=== PATIENT | female | born 1975 | race Caucasian/White ===

== ENCOUNTER 2020-05-18 12:56 | Outpatient (NON) | payer BC, SELFPAY ==
[2020-05-18 21:13] LABS: SARS-CoV-2 RNA PCR Negative
== END 2020-05-18 12:57 ==
PROVIDERS: PCP Family Medicine; Visit Provider Nurse Practitioner Family
DX: Z20.828 Contact with and (suspected) exposure to other viral communicable diseases (principal); R05 Cough; J02.9 Acute pharyngitis, unspecified; R51.9 Headache, unspecified
CPT/HCPCS: 87635; C9803; U0003

== ENCOUNTER 2021-01-25 16:21 | Outpatient (CLI) | payer BC, SELFPAY ==
--- NOTE | ~2021-01-25 | MM_ITS ---
EXAMINATION: MM scrn bay implant BI w bruce HISTORY: Screening mammogram TECHNIQUE: Craniocaudal and mediolateral oblique 3-D tomosynthesis images with implant displacement a nd synthetic 2-D images were generated. Craniocaudal and mediolateral oblique views of the breasts wi thout implant displacement were obtained using full field digital mammography. CAD analysis was submi tted and interpreted. COMPARISON: 08/12/2016 Limited bilateral breast ultrasound examination 01/12/2016 bilateral implant digital screening mammogram 09/13/2015 Limited bilateral breast ultrasound 04/15/2011 MRI breast 04/05/2011 bilateral breast ultrasound BREAST PARENCHYMAL COMPOSITION: The breasts are heterogeneously dense, which may obscure small masses . FINDINGS: There is no evidence of suspicious mass, calcification, or architectural distortion to sugg est malignancy in either breast. There has been no suspicious interval change. IMPRESSION: 1. No mammographic evidence of malignancy. 2. Recommend routine screening mammography in one year. BI-RADS Category 1: Negative Reviewed, dictated and finalized at location A.
== END 2021-01-25 16:22 | disposition home or self-care (01) ==
LOC: ANHIMG 16:25
PROVIDERS: PCP Family Medicine; Visit Provider Nurse Practitioner Family
DX: Z12.31 Encounter for screening mammogram for malignant neoplasm of breast (principal)
CPT/HCPCS: 77063; 77067

== ENCOUNTER 2024-02-08 20:49 | Emergency (ER) | payer BC, SELFPAY ==
[2024-02-08 20:50] VITALS: BP 149/92; PULSE 113; RESP 19; TEMP 36.4; O2SAT 100
--- NOTE | 2024-02-09 00:07 | ED.WOUNDLAC ---
HPI - Wound/Laceration General Chief Complaint: Wound/Laceration Stated Complaint: bug bite Time Seen by Provider: 02/08/24 22:58 History of Present Illness HPI narrative: Patient is a healthy 48-year-old female here today with a wound on her left forearm that began a day and a half ago. She states she was cleaning brush around her house and shortly after began having a diffuse rash which is consistent with prior episodes of poison laura. she notes that her sister is her primary care provider and she notified her of the rash, started prednisone yesterday and this has improved her rash however she did notice yesterday that she had a area of swelling to her left forearm which has not improved with steroids. She noted some overlying blisters in this area and was concerned that this could be infected and came into the emergency department for evaluation. She notes minimal pain to this area, no warmth, no fever chills. She did draw a douglas around the wound around 7:00 p.m. and it has not increased in size. Related Data Allergies Allergy/AdvReac Type Severity Reaction Status Date / Time omeprazole Allergy Unknown Unknown Verified 02/08/24 22:49 Sulfa (Sulfonamide Allergy Unknown Unknown Verified 02/08/24 22:49 Antibiotics) Review of Systems Review of Systems: All systems reviewed & are unremarkable except as noted in HPI and below PMFSH Family History Family History (Updated 03/31/14 @ 07:13 by DOCTOR UNKNOWN) Grandparent Hypertension Family history of lung cancer Family history of coronary artery disease Diabetes mellitus Mother Hypertension Social History Social History Smoking status: Smoker, status unknown Alcohol intake: current Exam Narrative: GENERAL: Well-appearing, well-nourished, and in no acute distress. ENT: Nares clear. Mucous membranes moist. NECK: Supple. CHEST: No respiratory distress. HEART: Normal peripheral pulses. EXTREMITIES: Normal range of motion. No edema. SKIN: Warm, dry, faint diffuse maculopapular rash present over the upper extremities and neck. No excoriations or overlying infection appreciated. She does have an area of 1 cm erythema with central scab consistent with developing cellulitis/ abscess versus insect bite. Erythema does not appear to extend beyond pen radha drawn around lesion. Course Course Emergency Course: Chart review performed, patient here with wound on her extremity, she has seen an evaluated, nontoxic appearing. She appears to have a 1 cm area of erythema on her left forearm. Differentials include lesion from poison laura, insect bite versus developing tiny abscess and cellulitis. Suspect more likely inflammatory change versus infectious due to her prodrome of a rash and spending a lot of time outside. Discussed options with patient, will do watch and wait antibiotics. Should she have worsening symptoms instead of improving symptoms over the next 24-48 hours she can initiate these antibiotics. She is advised follow-up closely with her primary care provider. The results of pertinent diagnostic studies and exam findings were discussed. The patient?s provisional diagnosis and plan of care were discussed with the patient and present family. The patient and/or present family expressed understanding of the diagnosis and plan. The nurse was instructed to provide written instructions and appropriate follow-up information. The patient understands their need and responsibility to obtain additional follow-up as instructed. The risks of medications administered and prescribed were discussed with the patient and family present. Vital Signs Vital signs: Vital Signs Temperature 97.6 F 02/08/24 20:50 Pulse Rate 113 H 02/08/24 20:50 Respiratory Rate 19 02/08/24 20:50 Blood Pressure 149/92 H 02/08/24 20:50 Pulse Oximetry 100 02/08/24 20:50 Oxygen Delivery Room Air 02/08/24 20:50 Temperature 97.6 F 02/08/24 20:50 Pulse Rate 76
[2024-02-09 00:19] VITALS: BP 138/72; PULSE 76; RESP 18; O2SAT 99
== END 2024-02-09 00:20 | disposition home or self-care (01) ==
PROVIDERS: Emergency Provider Student in an Organized Health Care Education/Training Program; PCP Family Medicine
DX: S50.862A Insect bite (nonvenomous) of left forearm, initial encounter (principal); W57.XXXA Bitten or stung by nonvenomous insect and other nonvenomous arthropods, initial encounter
CPT/HCPCS: 99283